=== PATIENT | female | born 1965 | race Caucasian/White ===

== ENCOUNTER 2019-11-10 20:29 | Emergency (ER) | payer BC ==
[~2019-11-10] VITALS: Ht 160 cm; Wt 136.0 kg
[2019-11-10 20:51] LABS: HEMATOCRIT 44.3 % (37.0-47.0); HEMOGLOBIN 13.7 g/dl (12.0-16.0); IMMATURE GRANULOCYTES 0.3 % (0.0-5.0); MEAN CELL VOLUME 87.5 fL CALC (80.0-100.0); MEAN CORPUSCULAR HGB 27.1 pG CALC (26.0-32.0); MEAN CORPUSCULAR HGB CONC 30.9 g/dL CAL (32.0-36.0); NEUT# 3.81 thou/uL (2.00-7.15); RED BLOOD COUNT 5.06 mill/uL (4.20-5.60); RED CELL DISTRI WIDTH 13.3 % (11.5-15.5)
[2019-11-10 21:10] LABS: ALBUMIN 4.5 g/dL (3.2-5.0); ALKALINE PHOSPHATASE 127 u/l (38-126); ANION GAP 12 (6-22 (CALC)); BILIRUBIN, TOTAL 0.4 mg/dL (0.0-1.4); BUN 16 mg/dL (7-17); BUN/CREATININE RATIO 20 (12-20 (CALC)); CARBON DIOXIDE 28 mmol/l (22-30); CHLORIDE 104 mmol/l (95-108); CREATININE 0.8 mg/dL (0.5-1.0); ETHYL ALCOHOL 0 mg/dl (0-30); GFR > 60 ML/MIN (>=60 (CALC)); GFR FOR AFR.AMER. > 60 ML/MIN (>=60 (CALC)); LIPASE 85 u/l (23-300); SGOT/AST 36 u/l (14-36); SODIUM 140 mmol/l (137-146); TOTAL PROTEIN 7.9 g/dL (6.3-8.2)
[2019-11-10 21:11] LABS: ACT PARTIAL THROMBO TIME 23.2 SECONDS (20.0-32.5); INTERNATIONAL NORMALIZED RATIO 0.9 RATIO (0.7-1.3); PROTHROMBIN TIME 9.1 SECONDS (9.0-12.5)
[2019-11-10] MEDS ORDERED: HYDROCO/APAP1 TA9 PO (21:54)
[2019-11-10 21:59] VITALS: BP 140/71
== END 2019-11-10 21:59 | disposition home or self-care (01) | DRG 605 ==
LOC: ED 20:29
DX: S00.03XA Contusion of scalp, initial encounter (principal); S16.1XXA Strain of muscle, fascia and tendon at neck level, initial encounter; S83.91XA Sprain of unspecified site of right knee, initial encounter; S50.311A Abrasion of right elbow, initial encounter; S20.211A Contusion of right front wall of thorax, initial encounter; S70.01XA Contusion of right hip, initial encounter; Y93.11 Activity, swimming; Y92.007 Garden or yard of unspecified non-institutional (private) residence as the place of occurrence of the external cause; Y99.9 Unspecified external cause status; W17.89XA Other fall from one level to another, initial encounter; Z96.651 Presence of right artificial knee joint